=== PATIENT | female | born 1950 | race Caucasian/White ===

== ENCOUNTER → 2021-03-06 13:12 | Outpatient (CLI) | payer MEDICARE, SELFPAY ==
[2021-03-06 13:56] LABS: Basophils # 0.1 K/mm3 (0-0.2); Eosinophils # 0.2 K/mm3 (0.0-0.4); Eosinophils % 3.1 % (0.1-12.0); Hematocrit 45.8 % (37.0-47.0); Hemoglobin 15.1 g/dL (12.2-16.2); Lymphocytes # 2.9 K/mm3 (0.7-4.5); Lymphocytes % 41.3 % (10-50); Mean Corpuscular Hemoglobin 32.4 pg (27.0-31.2); Mean Corpuscular Volume 98.2 fl (81-99); Mean Platelet Volume 7.4 fl (7.4-10.4); Monocytes # 0.5 K/mm3 (0.1-1.0); Monocytes % 6.6 % (1.7-9.3); Neutrophils # 3.4 K/mm3 (1.8-7.8); Neutrophils % 47.9 % (37.0-80.0); Platelet Count 313 K/mm3 (142-424); Red Blood Count 4.67 M/mm3 (4.20-5.40); Red Cell Distribution Width 12.5 % (11.5-17.5)
[2021-03-06 14:50] LABS: Alanine Aminotransferase 24 U/L (12-78); Albumin Level 4.7 g/dl (3.5-5.0); Albumin/Globulin Ratio 1.7 (1.1-1.8); Alkaline Phosphatase 84 U/L (38-126); Anion Gap 13.4 mEq/L (5-15); Aspartate Amino Transferase 29 U/L (14-36); Bilirubin,Total 0.7 mg/dl (0.2-1.3); Blood Urea Nitrogen 10 mg/dl (7-17); Calcium 9.9 mg/dl (8.4-10.2); Carbon Dioxide 24 mmol/L (22.0-30.0); Chloride 107 mmol/L (98-107); Chol/HDL Ratio 3.6 (1-3.5); Cholesterol 257 mg/dl (140-200); Estimated Glomerular Filt Rate 99 ml/min (>60); GFR (African American) 120 ML/MIN (>60); Globulin 2.8 g/dL (1.3-3.2); Glucose 97 mg/dl (74-100); HDL Cholesterol 72 mg/dl (40-60); Magnesium 2.1 mg/dl (1.6-2.3); Potassium 4.4 mmoL/L (3.5-5.1); Sodium 140 mmol/L (136-145); Total Protein,Serum 7.5 g/dl (6.3-8.2); Triglycerides 172 mg/dl (30-150); VLDL Cholesterol 34 mg/dL (0-40)
[2021-03-06 15:06] LABS: 25-OH Vitamin D, Total 83.6 ng/mL (30-100)
[2021-03-06 15:08] LABS: Triiodothryronine (T3) Uptake 31 % (23.5-40.5)
[2021-03-06 15:09] LABS: Free Thyroxine Index 2.4 ug/dL (5.93-13.13); T4 (Thyroxine) 7.9 ug/dl (5.53-11.0)
[2021-03-06 15:22] LABS: Thyroid Stimulating Hormone 2.47 uIU/mL (0.465-4.68)
[2021-03-06 15:42] LABS: Vitamin B12 922 pg/mL (239-931)
[2021-03-08 22:24] LABS: Thyroid Peroxidase Antibodies <9 IU/mL (0-34); Treponema pallidum Ab (FTA-ABS Non Reactive (Non Reactive)
== END ==
PROVIDERS: PCP Internal Medicine Adolescent Medicine; Visit Provider Internal Medicine Adolescent Medicine
DX: R53.83 Other fatigue (principal); R27.0 Ataxia, unspecified; R25.1 Tremor, unspecified; E78.00 Pure hypercholesterolemia, unspecified
CPT/HCPCS: 36415; 80053; 80061; 82306; 82607; 83735; 84436; 84443; 84479; 85025; 86376; 86780

== ENCOUNTER → 2021-03-21 13:21 | Outpatient (CLI) | payer MEDICARE, SELFPAY ==
--- NOTE | 2021-03-21 13:25 | MR_ITS ---
PROCEDURE: MR HEAD/BRAIN WO CON CLINICAL INDICATION: TREMOR COMPARISON: No exams were available for comparison TECHNIQUE: Routine multiplanar multi echo sequences are performed without gadolinium enhancement. FINDINGS: No midline shift, mass effect, intracranial hemorrhage, hydrocephalus, or acute infarction. No restricted diffusion. The cerebellopontine angles, cerebellum, and brainstem and mid brain have an unremarkable appearance. There is mild generalized atrophy along with more prominent bifrontal atrophy. There is prominence of the subdural space in the frontal region on both sides. Small T2 white matter hyperintensity is present in the left body of the caudate nucleus. Partial empty sella is present as a normal variant. The optic chiasm, corpus callosum, and craniocervical junction has an unremarkable appearance. There is fluid-filled left mastoid sinus. No paranasal sinus air-fluid levels evident. IMPRESSION: 1. No acute intracranial findings. 2. Mild diffuse cerebral atrophy greater in the frontal regions 3. Left mastoid sinus disease Dictated by: Pete Hutchinson MD 03/22/2021 15:59 Pete Hutchinson MD in [place] 03/22/2021 15:59
== END ==
PROVIDERS: PCP Internal Medicine Adolescent Medicine; Visit Provider Internal Medicine Adolescent Medicine
DX: R27.0 Ataxia, unspecified (principal); R25.1 Tremor, unspecified
CPT/HCPCS: 70551

== ENCOUNTER → 2021-06-07 09:18 | Outpatient (CLI) | payer MEDICARE, SELFPAY ==
[2021-06-07 10:28] LABS: Blood Urea Nitrogen 11 mg/dl (7-17); Estimated Glomerular Filt Rate 99 ml/min (>60); GFR (African American) 120 ML/MIN (>60)
[2021-06-07 10:33] LABS: C-Reactive Protein 2.4 mg/L (0-4)
[2021-06-07 10:41] LABS: Erythrocyte Sedimentation Rate 3 mm/hr (0-30)
[2021-06-08 12:40] LABS: Antistreptolysin O Ab 127.9 IU/mL (0.0-200.0)
== END ==
PROVIDERS: Visit Provider Psychiatry & Neurology Neurology
DX: Z01.812 Encounter for preprocedural laboratory examination (principal); G96.9 Disorder of central nervous system, unspecified
CPT/HCPCS: 36415; 82565; 84520; 85651; 86060; 86140

== ENCOUNTER → 2021-06-08 10:39 | Outpatient (CLI) | payer MEDICARE, SELFPAY ==
--- NOTE | 2021-06-08 10:45 | MR_ITS ---
PROCEDURE: MR CERVICAL SPINE WO/W CON CLINICAL INDICATION: CERVICAL RADICULOPATHY Fatigue and upper body weakness. Pain in lt shoulder. COMPARISON: MR MR HEAD/BRAIN WO CON from 03/21/2021 TECHNIQUE: Standard multiplanar multiecho sequences are performed without contrast. 3-D MIP and myelographic images are also rendered and reviewed FINDINGS: There is slight reversal of the cervical lordosis which could be due to patient positioning or muscle spasm. Partial empty sella noted.. C2-C3: Unremarkable. C3-C4: Unremarkable. C4-C5: Degenerative disc disease with minimal bulging disc. Mild bilateral foraminal narrowing. There is canal stenosis at this level measuring 10 mm. There is minimal contour deformity of the cord anteriorly. C5-C6: Degenerative disc disease with minimal bulging disc and endplate hypertrophic change. 2-3 mm retrolisthesis of C5. Canal stenosis at 9 mm with minimal contour deformity of the cord anteriorly. Moderate left-sided foraminal narrowing and mild right-sided foraminal narrowing. C6-C7: Left-sided foraminal narrowing from facet and uncovertebral hypertrophy. There is a small area of abnormal signal intensity involving the superior endplate of C6 anteriorly measuring 7 mm hypointense on T1 and hyperintense on the T2 weighted images showing some mild homogeneous contrast enhancement. This may represent a hemangioma. Other lesions not excluded and follow-up is suggested. C7-T1: The disc space is unremarkable. In the right foramen at C7-T1 there is a cystic appearing area measuring 9 mm transverse and 8 mm AP. This is hypointense on T1 and hyperintense on T2 and does not demonstrate contrast enhancement and may only be related to dural ectasia. The follow-up suggested to confirm stability. No extruded herniated disc is evident. The spinal cord has an unremarkable appearance. IMPRESSION: 1. There is multilevel cervical spondylosis with degenerative disc disease, bulging disc, facet and uncovertebral hypertrophy resulting in foraminal narrowing and canal stenosis with minimal impingement upon the cord at C5-C6 and C6-C7. Please see above for detailed description at each level. 2. 7 mm lesion of the C6 vertebral body showing some contrast enhancement. This is indeterminate. This could be related to a hemangioma or neoplastic process such is a metastatic lesion. Follow-up is suggested to confirm stability. 3. Cystic lesion in the right C7-T1 neural foramen and may only be due to dural ectasia. This does not demonstrate enhancement. 4. Suggest 3 month follow-up to confirm stability. Dictated by: Pete Hutchinson MD 06/09/2021 08:55 Pete Hutchinson MD in [place] 06/09/2021 08:55
== END ==
PROVIDERS: PCP Internal Medicine Adolescent Medicine; Visit Provider Psychiatry & Neurology Neurology
DX: M54.12 Radiculopathy, cervical region (principal)
CPT/HCPCS: 72156; 76376; A9576

== ENCOUNTER → 2021-10-13 07:29 | Outpatient (CLI) | payer MEDICARE, SELFPAY ==
--- NOTE | 2021-10-13 07:31 | NM_ITS ---
APPROVED REPORT Exam: Nuclear Stress Test Indication: SOB, Fatigue, Tobacco use, Family history Patient Location: Outpatient Stress Tech: Sissy Gambino [place] Tech:Ana Paula Rothman, ARRT, RT (R)(N) Ht: 5 ft 1 in Wt: 126 lbs Bra Size: B HR: 96 bpm BP: 136/84 mmHg BSA: 1.55 m2 BMI: 23.8 History: SOB, Fatigue, Tobacco use, Family history Procedure: Patient received a 0.4 mg of intravenous Lexiscan, resting heart rate 96 bpm, resting blood pressure 136/84 mmHg, with Lexiscan maximum heart rate achived was 122 bpm which is Less than 85 % of the maximum predicted heart rate and blood pressure was 139/70 mmHg. With Lexiscan, patient denied any complaint of chest pain. Electrocardiogram Resting electrocardiogram shows sinus rhythm, with Lexiscan there is less than 1.[address] segment depression noted from the baseline EKG. The EKG portion of the Lexiscan is nondiagnostic. Cardiac Stress and Resting SPECT Images: Cardiac Stress and Resting SPECT images were obtained using technetium 99m Myoview 30.8 mCi stress and 10.77 mCi at rest. Patient unable to lay on stomach for prone images. Gated SPECT for analysis of segmental wall motion and calculation of the ejection fraction also done. Cardiac stress and resting SPECT images show uniform myocardial activity without segmental perfusion abnormality, computer derived ejection fraction 64% with no regional wall motion abnormality, right ventricle is normal size and contractility. Conclusion: 1. The EKG portion of the Lexiscan Myoview is nondiagnostic. 2. No scintigraphic evidence of reversible ischemia seen, computer derived ejection fraction is 64% with no regional wall motion abnormality, right ventricle is normal size and contractility. 3. Normal Lexiscan Myoview study. Electronically signed by : Nam Mccoy MD 10/16/2021 21:21:44
--- NOTE | 2021-10-13 07:31 | CA_ITS ---
APPROVED REPORT Exam: Pharmacologic Technologist: Sissy Gambino, Ht: 5 ft 1 in Wt: 128 lbs BSA: 1.56 m2 HR: 97 bpm BP: 136/84 mmHg Medical History Medications: Vitamin D3,,,,, Co Q10,,,,, Stress Test Details Test: LEXISCAN HR Resting HR: 96 bpm Max Heart Rate (APMHR): 151.882327 bpm Max HR Achieved: 122 bpm Target HR (85% APMHR): 128.666793 bpm % of APMHR: 80.79 Recovery HR: 116 bpm BP Resting BP: 136/84 mmHg Max BP: 139/70 mmHg Recovery BP: 122.0/76.0 mmHg ECG Resting ECG: NSR, NSSTTW Abnormalities Clinical Reason for Termination: Completed Protocol Exercise duration: 04:05 min Highest Stage Achieved: Stress ECG Conclusion Symptoms: None Arrhythmias/Ectopy: None ST-T Changes: <1.5mm ST Segment changes. Conclusion: Non-Diagnostic Test Summary RECOVERY 02:29 . . 115 . 122/ 76 . . REST 04:52 . . 96 . 136/ 84 . . Stage 1 01:00 . . 120 . . . . Stage 2 01:00 . . 119 . . . . Stage 3 01:00 . . 116 . 139/ 70 . . Stage 4 01:00 . . 115 . 114/ 73 . . Stage 4 01:05 . . 114 . 114/ 73 . Stop exercise at 04:05 RECOVERY 01:00 . . 112 . . . . RECOVERY 02:00 . . 116 . . . . RECOVERY 02:29 . . 115 . 122/ 76 . . Electronically signed by : Nam Mccoy MD 10/16/2021 19:58:40
--- NOTE | 2021-10-13 09:23 | HMH.ITSHM ---
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 []COQ10 VITAMIN D3
== END ==
PROVIDERS: Visit Provider Nurse Practitioner Family
DX: R00.0 Tachycardia, unspecified (principal); R06.00 Dyspnea, unspecified; Z72.0 Tobacco use; Z82.49 Family history of ischemic heart disease and other diseases of the circulatory system
CPT/HCPCS: 78452; 93017; 93306; A9502; J2785

== ENCOUNTER → 2021-10-24 08:07 | Outpatient (CLI) | payer MEDICARE, SELFPAY ==
--- NOTE | 2021-10-24 08:14 | MR_ITS ---
PROCEDURE: MR CERVICAL SPINE WO/W CON CLINICAL INDICATION: RADICULOPATHY, CERVICAL REGION COMPARISON: MR MR CERVICAL SPINE WO/W CON from 06/08/2021 TECHNIQUE: Standard multiplanar multiecho sequences are performed without and with contrast. 3-D MIP and myelographic images are also rendered and reviewed FINDINGS: Small T2 hyperintensity noted in the central aspect of the derrick and may be related to an area of ski angela gliotic change. There is slight reversal of the cervical lordosis which could be due to patient positioning or muscle spasm. Partial empty sella noted.. C2-C3: Unremarkable. C3-C4: Unremarkable. C4-C5: Degenerative disc disease with minimal bulging disc. Mild bilateral foraminal narrowing. There is canal stenosis at this level measuring 10 mm. There is minimal contour deformity of the cord anteriorly. Not significantly changed. C5-C6: Degenerative disc disease with minimal bulging disc slightly eccentric to the left with severe left-sided foraminal narrowing and mild right-sided foraminal narrowing not significantly changed. C6-C7: Left-sided foraminal narrowing from facet and uncovertebral hypertrophy. Mild degenerative disc disease with minimal bulging discs. No abnormal enhancement apparent. There is a small persistent area of increased T2 signal involving the superior endplate of C6 anteriorly with no significant enhancement. C7-T1: The disc space is unremarkable. No change dural ectasia on the right at C7-T1. No extruded herniated disc is evident. The spinal cord has an unremarkable appearance. IMPRESSION: Multilevel cervical spondylosis as described above. Overall no significant change. No change in the T2 hyperintensity of the C6 vertebral body without significant enhancement. Dictated by: Pete Hutchinson MD 10/25/2021 16:26 Pete Hutchinson MD in [place] 10/25/2021 16:26
[2021-10-24 08:57] LABS: Blood Urea Nitrogen 11 mg/dl (7-17); Estimated Glomerular Filt Rate 99 ml/min (>60); GFR (African American) 120 ML/MIN (>60)
== END ==
PROVIDERS: PCP Internal Medicine Cardiovascular Disease; Visit Provider Psychiatry & Neurology Neurology
DX: M54.12 Radiculopathy, cervical region (principal)
CPT/HCPCS: 36415; 72156; 76376; 82565; 84520; A9576

== ENCOUNTER 2021-12-17 15:38 | Emergency (ER) | payer MEDICARE, SELFPAY ==
[2021-12-17] VITALS (7 sets, daily range): BP systolic 111–139; BP diastolic 76–114; PULSE 100–110; RESP 18–20; TEMP 37.3; O2SAT 92–98; BMI 21.5
--- NOTE | 2021-12-17 16:15 | HMH.EDGENADL ---
ED Disposition Clinical Impression: Acute bronchitis Qualifiers: Bronchitis organism: unspecified organism Qualified Code(s): J20.9 - Acute bronchitis, unspecified Disposition: Home, Self-Care Condition on Discharge: Good Instructions: DI for Acute Bronchitis, Albuterol Oral Inhalation, How to Use a Metered-Dose Inhaler Additional Instructions: Doxycycline as prescribed. Albuterol inhaler 2 puffs every 6 hours as needed for shortness of breath. Follow-up with primary care provider if not improved in 4 to 5 days. Prescriptions: Doxycycline Monohydrate [Monodox] 100 mg PO BID #20 cap Transmission Status: Pending to [id number] Referrals: Provider,Referral, [Primary Care Provider] - - Critical Care Critical Care Time: No Attestation: On 12/17/21, the high probability of a clinically significant, sudden or life threatening deterioration of the following system(s) required my full and direct attention, intervention and personal management. The time I documented below is in addition to time spent performing reported procedures but includes the following listed in this critical care notation. Medical Decision Making - Osiel Inquiry Pt receiving controlled substance: No Vital Signs: 12/17/21 15:40 12/17/21 16:15 12/17/21 16:45 Temperature 99.1 F Temperature Source Oral Pulse Rate 104 H 104 H Pulse Rate [Left Radial] 110 H Respiratory Rate 20 Blood Pressure 118/76 111/81 Blood Pressure [Right Arm] 130/89 Blood Pressure Mean Blood Pressure Mean [Right Arm] 102 Blood Pressure Source [Right Arm] Automatic Cuff Blood Pressure Position [Right Arm] Sitting 02 Sat by Pulse Oximetry 95 92 L 96 Oxygen Delivery Method Room Air 12/17/21 17:00 12/17/21 17:30 12/17/21 17:31 Temperature Temperature Source Pulse Rate 100 H 101 H Pulse Rate [Left Radial] Respiratory Rate Blood Pressure 117/80 138/114 H 139/88 Blood Pressure [Right Arm] Blood Pressure Mean 105 Blood Pressure Mean [Right Arm] Blood Pressure Source [Right Arm] Blood Pressure Position [Right Arm] 02 Sat by Pulse Oximetry 93 L 98 Oxygen Delivery Method - Lab Data Lab Results 12/17/21 16:05: WBC 12.6 H, RBC 4.70, Hgb 15.1, Hct 46.4, MCV 98.5, MCH 32.1 H, MCHC 32.6, RDW 12.5, Plt Count 384, MPV 7.8, Neut % (Auto) 58.6, Lymph % (Auto) 24.2, [place] % (Auto) 5.8, Eos % (Auto) 9.7, Baso % (Auto) 1.6, Neut # (Auto) 7.4, Lymph # (Auto) 3.0, [place] # (Auto) 0.7, Eos # (Auto) 1.2 H, Baso # (Auto) 0.2 12/17/21 16:05: Sodium 136, Potassium 3.9, Chloride 99, Carbon Dioxide 27, Anion Gap 13.9, BUN 22 H, Creatinine 0.50 L, Estimated Creat Clear 43, Estimated GFR 122, Est GFR ( Amer) 148, Glucose 116 H, Calcium 9.8, Total Bilirubin 0.6, AST 44 H, ALT 36, Alkaline Phosphatase 75, Troponin I < 0.01, Total Protein 7.2, Albumin 4.5, Globulin 2.7, Albumin/Globulin Ratio 1.7 12/17/21 16:05: D-Dimer 0.65 H 12/17/21 16:05: NT-Pro-B Natriuret Pep 39.6 Result diagrams: 12/17/21 16:05 12/17/21 16:05 Orders (Tests/Meds): ED MEDICATIONS Generic Name Dose Route Start Last Admin Trade Name Freq PRN Reason Stop Dose Admin Albuterol Sulfate 2 puffs 12/17/21 17:58 Albuterol-Hfa 90mcg/Puff Inhaler 8gm IH 01/16/22 17:57 Q6HP PRN Shortness Of Breath Doxycycline Hyclate 100 mg 12/17/21 17:59 Doxycycline Hycl 100 Mg Tablet PO 12/17/21 18:00 ONCE ONE Miscellaneous 1 unit 12/17/21 17:58 Aerochamber/Optihaler MC 12/17/21 17:59 ONCE ONE Discontinued Medications Generic Name Dose Route Start Last Admin Trade Name Freq PRN Reason Stop Dose Admin Iopamidol 70 ml 12/17/21 17:32 12/17/21 17:34 Iopamidol-370 (76%);100ml Bottle IV 12/17/21 17:33 70 ml ONCE ONE Administration Sodium Chloride 50 ml 12/17/21 17:32 12/17/21 17:33 0.9 % Sodium Chloride 50 Ml Vial IV 12/17/21 17:33 50 ml ONCE ONE Administration Sodium Chloride 10 ml 12/17/21 17:32
--- NOTE | 2021-12-17 16:26 | ECG_ITS ---
APPROVED REPORT Exam: Resting ECG HR:104 bpm ECG Measurements Heart Rate 104 AXES RI 136 P 51 QRSd 84 QRS 9 QT 322 T 69 QTc 382 Conclusion SINUS TACHYCARDIA NONSPECIFIC T-WAVE ABNORMALITY ABNORMAL RHYTHM ECG UNCONFIRMED REPORT Electronically signed by : Devon Villegas MD 12/18/2021 18:35:34
--- NOTE | 2021-12-17 16:26 | XR_ITS ---
PROCEDURE INFORMATION: Exam: XR Chest Exam date and time: 12/17/2021 4:26 PM Age: 71 years old Clinical indication: Shortness of breath; Patient HX: SOA, smoker. TECHNIQUE: Imaging protocol: XR of the chest. Views: 2 views. COMPARISON: MR CERVICAL SPINE WO/W CON 10/24/2021 8:53 AM FINDINGS: Lungs: Central opacities with peribronchial cuffing, seen to advantage on the lateral chest radiograph suggest viral process versus reactive airways without convincing consolidation. Pleural spaces: Inter fissural effusion seen on the lateral radiograph. No pneumothorax. Heart/Mediastinum: Unremarkable. No cardiomegaly. Bones/joints: Unremarkable. IMPRESSION: Central opacities with peribronchial cuffing, seen to advantage on the lateral chest radiograph suggest viral process versus reactive airways without convincing consolidation.
--- NOTE | 2021-12-17 16:37 | PC.NURSE ---
radiology here for xray
[2021-12-17 16:38] LABS: Basophils # 0.2 K/mm3 (0-0.2); Basophils % 1.6 % (0.1-2.0); Eosinophils # 1.2 K/mm3 (0.0-0.4); Eosinophils % 9.7 % (0.1-12.0); Hematocrit 46.4 % (37.0-47.0); Hemoglobin 15.1 g/dL (12.2-16.2); Lymphocytes % 24.2 % (10-50); Mean Corpuscular HGB Conc 32.6 g/dL (31.8-35.4); Mean Corpuscular Hemoglobin 32.1 pg (27.0-31.2); Mean Corpuscular Volume 98.5 fl (81-99); Mean Platelet Volume 7.8 fl (7.4-10.4); Monocytes # 0.7 K/mm3 (0.1-1.0); Monocytes % 5.8 % (1.7-9.3); Neutrophils # 7.4 K/mm3 (1.8-7.8); Neutrophils % 58.6 % (37.0-80.0); Platelet Count 384 K/mm3 (142-424); Red Cell Distribution Width 12.5 % (11.5-17.5); White Blood Count 12.6 K/mm3 (4.8-10.8)
[2021-12-17 16:44] LABS: Alanine Aminotransferase 36 U/L (12-78); Albumin Level 4.5 g/dl (3.5-5.0); Albumin/Globulin Ratio 1.7 (1.1-1.8); Alkaline Phosphatase 75 U/L (38-126); Anion Gap 13.9 mEq/L (5-15); Aspartate Amino Transferase 44 U/L (14-36); Bilirubin,Total 0.6 mg/dl (0.2-1.3); Blood Urea Nitrogen 22 mg/dl (7-17); Calcium 9.8 mg/dl (8.4-10.2); Carbon Dioxide 27 mmol/L (22.0-30.0); Chloride 99 mmol/L (98-107); Creatinine Clearance Estimated 43 mL/min (50-200); Estimated Glomerular Filt Rate 122 ml/min (>60); GFR (African American) 148 ML/MIN (>60); Globulin 2.7 g/dL (1.3-3.2); Glucose 116 mg/dl (74-100); Potassium 3.9 mmoL/L (3.5-5.1); Sodium 136 mmol/L (136-145); Total Protein,Serum 7.2 g/dl (6.3-8.2)
[2021-12-17 16:50] LABS: D-Dimer 0.65 ug/mL (0.0-0.5)
[2021-12-17 16:59] LABS: Troponin I < 0.01 ng/ml (0.00-0.034)
--- NOTE | 2021-12-17 17:04 | CT_ITS ---
PROCEDURE INFORMATION: Exam: CTA Chest With Contrast Exam date and time: 12/17/2021 5:04 PM Age: 71 years old Clinical indication: Shortness of breath; Additional info: SOA, elev d-dimer TECHNIQUE: Imaging protocol: Computed tomographic angiography of the chest with contrast. 3D rendering (Not supervised by radiologist): MIP and/or 3D reconstructed images were created by the technologist. Radiation optimization: All CT scans at this facility use at least one of these dose optimization techniques: automated exposure control; mA and/or kV adjustment per patient size (includes targeted exams where dose is matched to clinical indication); or iterative reconstruction. Contrast material: ISOVUE; Contrast volume: 70 ml; Contrast route: INTRAVENOUS (IV); COMPARISON: CR XR CHEST 2V 12/17/2021 4:24 PM FINDINGS: Pulmonary arteries: Normal. No pulmonary emboli. Aorta: Unremarkable. No aortic aneurysm. No aortic dissection. Lungs: Dependent bilateral lung base opacities favor atelectasis. Subsegmental atelectasis with air bronchograms of the right middle lobe and lingula. Pleural spaces: Unremarkable. No pneumothorax. No pleural effusion. Heart: Unremarkable. No cardiomegaly. No pericardial effusion. Lymph nodes: Unremarkable. No enlarged lymph nodes. Bones/joints: Unremarkable. No acute fracture. Soft tissues: Unremarkable. IMPRESSION: No CT angiography evidence of pulmonary embolism.
[2021-12-17 17:27] LABS: NT Pro Brain Natriuretic Pep. 39.6 pg/mL (0-125)
--- NOTE | 2021-12-17 17:28 | PC.NURSE ---
pt just got back from radiology.
--- NOTE | 2021-12-17 17:30 | PC.NURSE ---
pt resting in bed, call light within reach. error: burner technician not in room with this patient. Different patient. V/S 1730 BP: 139/88
== END 2021-12-17 18:11 | disposition home or self-care (01) ==
PROVIDERS: Emergency Provider Emergency Medicine
DX: J20.9 Acute bronchitis, unspecified (principal); F41.9 Anxiety disorder, unspecified; F17.210 Nicotine dependence, cigarettes, uncomplicated
CPT/HCPCS: 71046; 71275; 80053; 83880; 84484; 85025; 85378; 93005; 99283; Q9967

== ENCOUNTER 2022-01-11 11:35 | Emergency (ER) | payer MEDICARE, SELFPAY ==
[2022-01-11 11:36] VITALS: BP 125/87; PULSE 112; RESP 24; TEMP 36.8; O2SAT 95; BMI 20.4
--- NOTE | 2022-01-11 12:10 | HMH.EDGENADL ---
ED Disposition Clinical Impression: History of progressive weakness, Anorexia Cholelithiasis Qualifiers: Cholelithiasis location: gallbladder Cholecystitis presence: without cholecystitis Biliary obstruction: without biliary obstruction Qualified Code(s): K80.20 - Calculus of gallbladder without cholecystitis without obstruction Disposition: Home, Self-Care Condition on Discharge: Fair Additional Instructions: See Dr. Patton in the office on Saturday as scheduled. Referrals: Sydney Patton MD [Primary Care Provider] - - Critical Care Critical Care Time: No Attestation: On 01/11/22, the high probability of a clinically significant, sudden or life threatening deterioration of the following system(s) required my full and direct attention, intervention and personal management. The time I documented below is in addition to time spent performing reported procedures but includes the following listed in this critical care notation. Medical Decision Making - Medical Records Medical records reviewed: Yes: I reviewed the patient's medical records. MR Comment: Reviewed records from previous emergency department visit. Reviewed note from prior cardiology visit. Reviewed results of echocardiogram, stress test with Myoview, MRI brain, 2 MRIs of C-spine, CTA of chest. Reviewed prior lab results. - Osiel Inquiry Pt receiving controlled substance: No Vital Signs: 01/11/22 11:36 Temperature 98.3 F Temperature Source Oral Pulse Rate [Right Radial] 112 H Respiratory Rate 24 Blood Pressure [Left Arm] 125/87 Blood Pressure Mean [Left Arm] 99 Blood Pressure Source [Left Arm] Automatic Cuff Blood Pressure Position [Left Arm] Sitting 02 Sat by Pulse Oximetry 95 Oxygen Delivery Method Room Air - Lab Data Lab Results 01/11/22 12:48: Sodium 141, Potassium 4.2, Chloride 100, Carbon Dioxide 33 H, Anion Gap 12.2, BUN 9, Creatinine 0.40 L, Estimated Creat Clear 41, Estimated GFR 158, Est GFR ( Amer) 191, Glucose 113 H, Calcium 9.5, Total Bilirubin 0.6, AST 28, ALT 21, Alkaline Phosphatase 79, Troponin I < 0.01, C-Reactive Protein 2.7, NT-Pro-B Natriuret Pep 58.5, Total Protein 7.5, Albumin 4.6, Globulin 2.9, Albumin/Globulin Ratio 1.6 01/11/22 12:48: ESR 3 01/11/22 : WBC 7.2, RBC 4.96, Hgb 16.0, Hct 48.7 H, MCV 98.1, MCH 32.2 H, MCHC 32.9, RDW 12.5, Plt Count 373, MPV 7.1 L, Neut % (Auto) 60.2, Lymph % (Auto) 30.6, [place] % (Auto) 5.4, Eos % (Auto) 3.1, Baso % (Auto) 0.7, Neut # (Auto) 4.3, Lymph # (Auto) 2.2, [place] # (Auto) 0.4, Eos # (Auto) 0.2, Baso # (Auto) 0.1 Result diagrams: 01/11/22 Unknown 01/11/22 12:48 Orders (Tests/Meds): ED MEDICATIONS Generic Name Dose Route Start Last Admin Trade Name Freq PRN Reason Stop Dose Admin Sodium Chloride 10 ml 01/11/22 12:10 Sodium Chloride 0.9% 10ml Flush Syringe IV 02/10/22 12:09 NEEDED PRN Maintain IV Site Discontinued Medications Generic Name Dose Route Start Last Admin Trade Name Freq PRN Reason Stop Dose Admin Iopamidol 75 ml 01/11/22 13:46 01/11/22 13:47 Iopamidol-370 (76%);100ml Bottle IV 01/11/22 13:47 75 ml ONCE ONE Administration Sodium Chloride 10 ml 01/11/22 13:46 01/11/22 13:47 Sodium Chloride 0.9% 10ml Syr (Rad Only) IV 01/11/22 13:47 10 ml ONCE ONE Administration ORDERS Category Date Time Status Troponin I Q3H Lab 01/11/22 15:15 Ordered Troponin I Q3H Lab 01/11/22 18:15 Ordered - CT Data CT Scan: Abdomen, Pelvis Time Received: 14:[address] Reviewed: Yes: I have viewed the radiologist's interpretation Findings Narrative: Procedure(s): CT abdomen pelvis w con Accession Number(s): [id number] cc: Nabeel Foss MD; Chepe Kowalski MD; Sydney Patton MD~ FINAL REPORT CLINICAL HISTORY: weakness, fatigue FINDINGS: CT OF THE ABDOMEN AND PELVIS WITH CONTRAST Axial CT images of the abdomen and pelvis were obtained after the administration of intravenous contrast. Coronal reformatted images wer
--- NOTE | 2022-01-11 12:39 | PC.NURSE ---
Calling Dr Hensley at this time.
--- NOTE | 2022-01-11 12:41 | ECG_ITS ---
APPROVED REPORT Exam: Resting ECG HR:105 bpm ECG Measurements Heart Rate 105 AXES ID 125 P 57 QRSd 103 QRS 10 QT 320 T 69 QTc 381 Conclusion SINUS TACHYCARDIA WITH OCCASIONAL SUPRAVENTRICULAR PREMATURE COMPLEXES NONSPECIFIC T-WAVE ABNORMALITY ABNORMAL RHYTHM ECG UNCONFIRMED REPORT Electronically signed by : Devon Villegas MD 01/11/2022 20:18:59
--- NOTE | 2022-01-11 12:42 | PC.NURSE ---
speaking with Dr Hensley at this time.
--- NOTE | 2022-01-11 12:42 | PC.NURSE ---
Dr Kowalski talking to Dr Hensley about patient.
[2022-01-11 13:06] LABS: Basophils # 0.1 K/mm3 (0-0.2); Basophils % 0.7 % (0.1-2.0); Eosinophils # 0.2 K/mm3 (0.0-0.4); Eosinophils % 3.1 % (0.1-12.0); Hematocrit 48.7 % (37.0-47.0); Lymphocytes # 2.2 K/mm3 (0.7-4.5); Lymphocytes % 30.6 % (10-50); Mean Corpuscular HGB Conc 32.9 g/dL (31.8-35.4); Mean Corpuscular Hemoglobin 32.2 pg (27.0-31.2); Mean Corpuscular Volume 98.1 fl (81-99); Mean Platelet Volume 7.1 fl (7.4-10.4); Monocytes # 0.4 K/mm3 (0.1-1.0); Monocytes % 5.4 % (1.7-9.3); Neutrophils # 4.3 K/mm3 (1.8-7.8); Neutrophils % 60.2 % (37.0-80.0); Platelet Count 373 K/mm3 (142-424); Red Blood Count 4.96 M/mm3 (4.20-5.40); Red Cell Distribution Width 12.5 % (11.5-17.5); White Blood Count 7.2 K/mm3 (4.8-10.8)
[2022-01-11 13:11] LABS: Alanine Aminotransferase 21 U/L (12-78); Albumin Level 4.6 g/dl (3.5-5.0); Albumin/Globulin Ratio 1.6 (1.1-1.8); Alkaline Phosphatase 79 U/L (38-126); Anion Gap 12.2 mEq/L (5-15); Aspartate Amino Transferase 28 U/L (14-36); Bilirubin,Total 0.6 mg/dl (0.2-1.3); Blood Urea Nitrogen 9 mg/dl (7-17); Calcium 9.5 mg/dl (8.4-10.2); Carbon Dioxide 33 mmol/L (22.0-30.0); Chloride 100 mmol/L (98-107); Creatinine Clearance Estimated 41 mL/min (50-200); Estimated Glomerular Filt Rate 158 ml/min (>60); GFR (African American) 191 ML/MIN (>60); Globulin 2.9 g/dL (1.3-3.2); Glucose 113 mg/dl (74-100); Potassium 4.2 mmoL/L (3.5-5.1); Sodium 141 mmol/L (136-145); Total Protein,Serum 7.5 g/dl (6.3-8.2)
[2022-01-11 13:16] LABS: C-Reactive Protein 2.7 mg/L (0-4)
--- NOTE | 2022-01-11 13:17 | CT_ITS ---
FINAL REPORT CLINICAL HISTORY: weakness, fatigue FINDINGS: CT OF THE ABDOMEN AND PELVIS WITH CONTRAST Axial CT images of the abdomen and pelvis were obtained after the administration of intravenous contrast. Coronal reformatted images were also obtained and reviewed.This study was performed with techniques to keep radiation doses as low as reasonably achievable (ALARA). Individualized dose reduction techniques using automated exposure control or adjustment of mA and/or kV according to the patient's size were employed. Abdomen: There is mild bibasilar atelectasis or scarring. The heart is normal in size. The liver has an unremarkable appearance, without evidence of mass or biliary ductal dilatation. There are gallstones in the gallbladder with mild gallbladder wall thickening. Cholecystitis cannot be excluded. The spleen is unremarkable. No adrenal mass is present. The pancreas has an unremarkable appearance. The kidneys are normal, without evidence of mass or hydronephrosis. The aorta is normal in caliber. There is no free fluid or adenopathy. No mass or abnormal fluid collection is seen. There is a large amount of retained stool. Pelvis: The appendix is normal. The urinary bladder is unremarkable. No inflammatory process is seen. There is no evidence of mass or adenopathy. There is thickening of the wall of the sigmoid colon that may represent muscular hypertrophy or mild colitis. There is no evidence of bowel obstruction. IMPRESSION: Gallstones with mild gallbladder wall thickening. Cholecystitis cannot be excluded. Consider nuclear medicine hepatobiliary scan. Thickening of the sigmoid colon wall may represent muscular hypertrophy or mild colitis. Large amount of retained stool. Normal appendix. Reviewed, Interpreted and Dictated by Nabeel Foss III, MD Transcribed by Fabian Jimenes Authenticated by Nabeel Foss III, MD on 01/11/2022 02:12:09 PM [facility]
[2022-01-11 13:26] LABS: NT Pro Brain Natriuretic Pep. 58.5 pg/mL (0-125)
[2022-01-11 13:28] LABS: Erythrocyte Sedimentation Rate 3 mm/hr (0-30)
[2022-01-11 13:37] LABS: Troponin I < 0.01 ng/ml (0.00-0.034)
[2022-01-11 14:54] VITALS: BP 121/70; PULSE 102; RESP 18; TEMP 36.8; O2SAT 98
== END 2022-01-11 15:20 | disposition home or self-care (01) ==
PROVIDERS: Emergency Provider Emergency Medicine; PCP Family Medicine
DX: K80.20 Calculus of gallbladder without cholecystitis without obstruction (principal); R63.0 Anorexia; Z68.20 Body mass index [BMI] 20.0-20.9, adult; F41.9 Anxiety disorder, unspecified; F17.210 Nicotine dependence, cigarettes, uncomplicated; Z88.0 Allergy status to penicillin; Z88.2 Allergy status to sulfonamides
CPT/HCPCS: 74177; 80053; 83880; 84484; 85025; 85651; 86140; 93005; 99283; 99284; Q9967

== ENCOUNTER 2022-01-18 12:00 | Emergency (ER) | payer MEDICARE, SELFPAY ==
--- NOTE | 2022-01-18 11:56 | ECG_ITS ---
APPROVED REPORT Exam: Resting ECG HR:101 bpm ECG Measurements Heart Rate 101 AXES IN 125 P 52 QRSd 89 QRS 10 QT 346 T 56 QTc 404 Conclusion SINUS TACHYCARDIA WITH OCCASIONAL SUPRAVENTRICULAR PREMATURE COMPLEXES POSSIBLE RIGHT ATRIAL ENLARGEMENT [0.25mV P-WAVE] MINIMAL VOLTAGE CRITERIA FOR LVH, CONSIDER NORMAL VARIANT [MEETS CRITERIA IN ONE OF: R(aVL), S(V1), R(V5), R(V5/V6)+S(V1)] ABNORMAL RHYTHM ECG UNCONFIRMED REPORT Electronically signed by : Devon Villegas MD 01/19/2022 19:23:35
[2022-01-18 11:58] VITALS: BP 110/73; PULSE 95; RESP 21; TEMP 36.7; O2SAT 99
[2022-01-18 12:30] VITALS: PULSE 112; RESP 20; O2SAT 96
[2022-01-18 13:00] VITALS: BP 122/73; PULSE 96; RESP 18; O2SAT 100
[2022-01-18 13:00] LABS: Basophils # 0.1 K/mm3 (0-0.2); Basophils % 0.8 % (0.1-2.0); Eosinophils # 0.1 K/mm3 (0.0-0.4); Eosinophils % 1.5 % (0.1-12.0); Hematocrit 46.8 % (37.0-47.0); Hemoglobin 15.3 g/dL (12.2-16.2); Lymphocytes # 1.9 K/mm3 (0.7-4.5); Lymphocytes % 27.6 % (10-50); Mean Corpuscular HGB Conc 32.6 g/dL (31.8-35.4); Mean Corpuscular Hemoglobin 32.3 pg (27.0-31.2); Mean Platelet Volume 7.3 fl (7.4-10.4); Monocytes # 0.5 K/mm3 (0.1-1.0); Monocytes % 7.3 % (1.7-9.3); Neutrophils # 4.3 K/mm3 (1.8-7.8); Neutrophils % 62.8 % (37.0-80.0); Platelet Count 351 K/mm3 (142-424); Red Blood Count 4.73 M/mm3 (4.20-5.40); Red Cell Distribution Width 12.4 % (11.5-17.5); White Blood Count 6.8 K/mm3 (4.8-10.8)
[2022-01-18 13:06] LABS: Chloride 96 mmol/L (98-107); Sodium 135 mmol/L (136-145)
[2022-01-18 13:09] LABS: Alanine Aminotransferase 24 U/L (12-78); Albumin Level 4.3 g/dl (3.5-5.0); Albumin/Globulin Ratio 1.6 (1.1-1.8); Alkaline Phosphatase 75 U/L (38-126); Aspartate Amino Transferase 35 U/L (14-36); Bilirubin,Total 0.7 mg/dl (0.2-1.3); Blood Urea Nitrogen 6 mg/dl (7-17); Carbon Dioxide 34 mmol/L (22.0-30.0); Creatinine Clearance Estimated 40 mL/min (50-200); Estimated Glomerular Filt Rate 122 ml/min (>60); GFR (African American) 148 ML/MIN (>60); Globulin 2.7 g/dL (1.3-3.2)
[2022-01-18 13:10] LABS: Calcium 8.6 mg/dl (8.4-10.2); Glucose 144 mg/dl (74-100)
[2022-01-18 13:30] VITALS: BP 116/71; PULSE 97; RESP 14; O2SAT 99
--- NOTE | 2022-01-18 14:00 | XR_ITS ---
FINAL REPORT TECHNIQUE: Chest PA & Lateral CLINICAL HISTORY: soa COMPARISON: December 17, 2021 FINDINGS: 2 views of the chest were performed. The heart size is normal. The mediastinum is within normal limits. There is no acute cardiopulmonary process. There is scarring at the lung bases. There is mild elevation of the left hemidiaphragm. There are no pleural effusions. There is no pneumothorax. The bony thorax appears intact. IMPRESSION: Mild elevation of the left hemidiaphragm. Reviewed, Interpreted and Dictated by Marvin Lopez MD Transcribed by Melanie Vora Authenticated by Marvin Lopez MD on 01/18/2022 03:58:35 PM [facility]
--- NOTE | 2022-01-18 14:00 | XR_ITS ---
FINAL REPORT CLINICAL HISTORY: f/u of impacted bowels FINDINGS: Flat and upright views of the abdomen were obtained. There is a nonspecific bowel gas pattern. There are some air-filled loops of nondilated small bowel. There is no abnormal calcification. The bony structures are intact. IMPRESSION: Nonspecific bowel gas pattern. Reviewed, Interpreted and Dictated by Marvin Lopez MD Transcribed by Melanie Vora Authenticated by Marvin Lopez MD on 01/18/2022 03:58:33 PM [facility]
--- NOTE | 2022-01-18 14:04 | HMH.EDGENADL ---
ED Disposition Clinical Impression: Dysphagia Qualifiers: Dysphagia type: unspecified Qualified Code(s): R13.10 - Dysphagia, unspecified Disposition: Home, Self-Care Condition on Discharge: Good Instructions: DI for Adverse Drug Reaction -- Allergic Additional Instructions: Follow-up with Dr. Patton, call for appointment. Referrals: Sydney Patton MD [Primary Care Provider] - - Critical Care Critical Care Time: No Attestation: On 01/18/22, the high probability of a clinically significant, sudden or life threatening deterioration of the following system(s) required my full and direct attention, intervention and personal management. The time I documented below is in addition to time spent performing reported procedures but includes the following listed in this critical care notation. Medical Decision Making - [place]iel Inquiry Pt receiving controlled substance: No Vital Signs: 01/18/22 11:58 01/18/22 12:30 01/18/22 13:00 Temperature 98.1 F Temperature Source Oral Pulse Rate 112 H 96 H Pulse Rate [Left Radial] 95 H Respiratory Rate 21 20 18 Blood Pressure 122/73 Blood Pressure [Left Arm] 110/73 Blood Pressure Mean [Left Arm] 85 Blood Pressure Source [Left Arm] Automatic Cuff Blood Pressure Position [Left Arm] Sitting 02 Sat by Pulse Oximetry 99 96 100 Oxygen Delivery Method Nasal Cannula Oxygen Flow Rate (LPM) 2 01/18/22 13:30 Temperature Temperature Source Pulse Rate 97 H Pulse Rate [Left Radial] Respiratory Rate 14 Blood Pressure 116/71 Blood Pressure [Left Arm] Blood Pressure Mean [Left Arm] Blood Pressure Source [Left Arm] Blood Pressure Position [Left Arm] 02 Sat by Pulse Oximetry 99 Oxygen Delivery Method Oxygen Flow Rate (LPM) - Lab Data Lab Results 01/18/22 12:44: WBC 6.8, RBC 4.73, Hgb 15.3, Hct 46.8, MCV 99.0, MCH 32.3 H, MCHC 32.6, RDW 12.4, Plt Count 351, MPV 7.3 L, Neut % (Auto) 62.8, Lymph % (Auto) 27.6, Haines % (Auto) 7.3, Eos % (Auto) 1.5, Baso % (Auto) 0.8, Neut # (Auto) 4.3, Lymph # (Auto) 1.9, Haines # (Auto) 0.5, Eos # (Auto) 0.1, Baso # (Auto) 0.1 01/18/22 12:44: Sodium 135 L, Potassium 4.0, Chloride 96 L, Carbon Dioxide 34 H, Anion Gap 9.0, BUN 6 L, Creatinine 0.50 L, Estimated Creat Clear 40, Estimated GFR 122, Est GFR ( Amer) 148, Glucose 144 H, Calcium 8.6, Total Bilirubin 0.7, AST 35, ALT 24, Alkaline Phosphatase 75, Total Protein 7.0, Albumin 4.3, Globulin 2.7, Albumin/Globulin Ratio 1.6 Result diagrams: 01/18/22 12:44 01/18/22 12:44 Orders (Tests/Meds): ED MEDICATIONS Generic Name Dose Route Start Last Admin Trade Name Freq PRN Reason Stop Dose Admin Sodium Chloride 8 ml 01/18/22 12:17 Sodium Chloride 0.9% 10ml Vial IV 02/17/22 12:16 NEEDED PRN dilute pepcid Discontinued Medications Generic Name Dose Route Start Last Admin Trade Name Freq PRN Reason Stop Dose Admin Diphenhydramine HCl 25 mg 01/18/22 12:16 01/18/22 12:18 Diphenhydramine 50mg/Ml Vial IV 01/18/22 12:17 25 mg ONCE ONE Administration Famotidine 20 mg 01/18/22 12:17 01/18/22 12:18 Famotidine 20mg/2ml Vial IV 01/18/22 12:18 20 mg ONCE ONE Administration Methylprednisolone Sodium Succinate 125 mg 01/18/22 12:19 01/18/22 12:19 Methylprednisolone Sod Succ 125mg Vial IV 01/18/22 12:20 125 mg ONCE ONE Administration ORDERS Category Date Time Status Chest XR 2 view (NOT portable) [XR chest 2V] Stat Exams 01/18/22 14:00 Taken XR abdomen min 2V Stat Exams 01/18/22 14:00 Taken - Radiology Data #1 Image(s): Chest, Abdomen Image Reviewed: Yes I reviewed the patient's radiology image No acute process on chest x-ray, no significant change from prior. Abdominal x-ray shows no signs of obstruction or free air. Stool burden appears improved from recent CT scan. - ECG Data Tracing #1 EKG interpreted by Chepe Kowalski MD: Rhythm: sinus tachycardia Rate: 101 [place]: normal Ectopy: Jaclyn
--- NOTE | 2022-01-18 14:07 | PC.NURSE ---
patient to radiology
--- NOTE | 2022-01-18 14:20 | PC.NURSE ---
patient back from radiology
--- NOTE | 2022-01-18 14:27 | PC.NURSE ---
MD at bedside for update on POC
[2022-01-18 15:17] VITALS: BP 129/73; PULSE 68; RESP 16; TEMP 36.6; O2SAT 97
== END 2022-01-18 15:32 | disposition home or self-care (01) ==
PROVIDERS: Emergency Provider Emergency Medicine; PCP Family Medicine
DX: R13.10 Dysphagia, unspecified (principal); T45.2X5A Adverse effect of vitamins, initial encounter; Y92.019 Unspecified place in single-family (private) house as the place of occurrence of the external cause; F41.9 Anxiety disorder, unspecified; F17.210 Nicotine dependence, cigarettes, uncomplicated
CPT/HCPCS: 36415; 71046; 74019; 80053; 85025; 93005; 96374; 96375; 99283

== ENCOUNTER 2022-02-18 13:23 | Emergency (ER) | payer MEDICARE, SELFPAY ==
[2022-02-18] VITALS (15 sets, daily range): BP systolic 111–159; BP diastolic 66–110; PULSE 87–119; RESP 18–22; TEMP 36.4–36.6; O2SAT 75–100; BMI 18.5
--- NOTE | 2022-02-18 | ECG_ITS ---
APPROVED REPORT Exam: Resting ECG HR:90 bpm ECG Measurements Heart Rate 90 AXES IA 188 P 84 QRSd 85 QRS 46 QT 341 T 91 QTc [address] DEVIATION AND MODERATE T-WAVE ABNORMALITY, CONSIDER ANTERIOR ISCHEMIA [-0.1+ mV T-WAVE IN V3/V4] ABNORMAL ECG UNCONFIRMED REPORT Electronically signed by : Devon Villegas MD 02/19/2022 19:46:17
--- NOTE | 2022-02-18 13:25 | PC.NURSE ---
PT AWAKE ALERT, ANSWER QUESTIONS FOLLOWS COMMANDS. PT STATES SHE IS UNABLE TO LIFT ARMS. STATES SHE WAS WALKING AROUND IN HOUSE THIS AM. STATES THERE HAS BEEN A CHANGE IN VOICE IT HAS BECOME VERY WEAK . PT WITH GRUNTING, SHALLOW RESP.
[2022-02-18 13:44] LABS: POC Glucose,Bedside 129 (70-110)
--- NOTE | 2022-02-18 13:45 | XR_ITS ---
PROCEDURE INFORMATION: Exam: XR Chest Exam date and time: 02/18/2022 1:52 PM Age: 71 years old Clinical indication: Shortness of breath; Additional info: SOB TECHNIQUE: Imaging protocol: XR of the chest. Views: 1 view. COMPARISON: CR XR CHEST 2V 01/18/2022 1:59 PM FINDINGS: Lungs: Mild hyperlucent changes within the upper to mid lung zones. Subtle region of opacification at the left lung base. Pleural spaces: Unremarkable. No pleural effusion. No pneumothorax. Heart/Mediastinum: Unremarkable. No cardiomegaly. Diaphragm: Persistent mild elevation of both hemidiaphragms. Bones/joints: Unremarkable. IMPRESSION: 1. Mild hyperlucent changes as described above. Mild emphysematous changes could not be excluded. 2. Patchy left lower lobe infiltrate suggested.
[2022-02-18 13:56] LABS: Chloride 94 mmol/L (98-107)
[2022-02-18 13:57] LABS: Potassium 3.8 mmoL/L (3.5-5.1); Sodium 143 mmol/L (136-145)
[2022-02-18 13:59] LABS: Alanine Aminotransferase 25 U/L (12-78); Alkaline Phosphatase 86 U/L (38-126); Aspartate Amino Transferase 33 U/L (14-36); Basophils % 0.5 % (0.1-2.0); Bilirubin,Total 0.7 mg/dl (0.2-1.3); Blood Urea Nitrogen 12 mg/dl (7-17); Creatinine Clearance Estimated 37 mL/min (50-200); Eosinophils % 0.1 % (0.1-12.0); Estimated Glomerular Filt Rate 158 ml/min (>60); GFR (African American) 191 ML/MIN (>60); Hematocrit 51.9 % (37.0-47.0); Hemoglobin 16.4 g/dL (12.2-16.2); Lymphocytes % 12.5 % (10-50); Mean Corpuscular HGB Conc 31.6 g/dL (31.8-35.4); Mean Corpuscular Hemoglobin 32.2 pg (27.0-31.2); Mean Corpuscular Volume 101.9 fl (81-99); Mean Platelet Volume 8.4 fl (7.4-10.4); Monocytes # 0.4 K/mm3 (0.1-1.0); Monocytes % 5.7 % (1.7-9.3); Neutrophils # 6.3 K/mm3 (1.8-7.8); Neutrophils % 81.3 % (37.0-80.0); Platelet Count 295 K/mm3 (142-424); Red Cell Distribution Width 13.1 % (11.5-17.5); White Blood Count 7.8 K/mm3 (4.8-10.8)
[2022-02-18 14:00] LABS: Albumin Level 4.3 g/dl (3.5-5.0); Albumin/Globulin Ratio 1.4 (1.1-1.8); Calcium 9.2 mg/dl (8.4-10.2); Globulin 3.1 g/dL (1.3-3.2); Glucose 118 mg/dl (74-100); Total Protein,Serum 7.4 g/dl (6.3-8.2)
[2022-02-18 14:07] LABS: Anion Gap 11.8 mEq/L (5-15); Carbon Dioxide 41 mmol/L (22.0-30.0)
--- NOTE | 2022-02-18 14:10 | HMH.EDGENADL ---
ED Disposition Clinical Impression: Acute respiratory failure with hypoxia and hypercapnia, H/O neurological degenerative disease Pneumonia Qualifiers: Pneumonia type: due to unspecified organism Laterality: left Lung location: lower lobe of lung Qualified Code(s): J18.9 - Pneumonia, unspecified organism Disposition: Xfer Short-Term Hosp Condition on Discharge: Serious Referrals: Sydney Patton MD [Primary Care Provider] - - Critical Care Critical Care Time: Yes Attestation: On 02/18/22, the high probability of a clinically significant, sudden or life threatening deterioration of the following system(s) required my full and direct attention, intervention and personal management. The time I documented below is in addition to time spent performing reported procedures but includes the following listed in this critical care notation. Total Critical Care Time: 60 Vital system(s) involved:: Respiratory Failure My critical care processes included: Assessment & monitoring of V/S, Initial and Re-exams, Data Review/Interpretation, Coordinating Care, Medication Orders and management, Documentation Medical Decision Making - Medical Records Medical records reviewed: Yes: I reviewed the patient's medical records. MR Comment: Reviewed prior imaging studies and emergency department visits. See CT and MRI reports from previous visits below. - Osiel Inquiry Pt receiving controlled substance: No Vital Signs: 02/18/22 13:24 02/18/22 13:34 02/18/22 14:09 Temperature 97.6 F Temperature Source Oral Pulse Rate 101 H 87 Pulse Rate [Radial] 107 H Respiratory Rate 22 18 19 Blood Pressure 143/76 H 150/91 H Blood Pressure [Right Arm] 143/76 H Blood Pressure Mean 110 Blood Pressure Mean [Right Arm] 98 Blood Pressure Position [Right Arm] Sitting 02 Sat by Pulse Oximetry 100 80 L 100 Oxygen Delivery Method Nasal Cannula Room Air Nasal Cannula Oxygen Flow Rate (LPM) 3 3 02/18/22 14:30 02/18/22 15:00 02/18/22 15:31 Temperature Temperature Source Pulse Rate 95 H 95 H 99 H Pulse Rate [Radial] Respiratory Rate 20 18 20 Blood Pressure 147/95 H 133/82 119/66 Blood Pressure [Right Arm] Blood Pressure Mean 104 97 102 Blood Pressure Mean [Right Arm] Blood Pressure Position [Right Arm] 02 Sat by Pulse Oximetry 97 97 100 Oxygen Delivery Method Oxygen Flow Rate (LPM) 02/18/22 16:00 02/18/22 16:20 Temperature Temperature Source Pulse Rate 89 90 Pulse Rate [Radial] Respiratory Rate 20 20 Blood Pressure 111/89 131/92 H Blood Pressure [Right Arm] Blood Pressure Mean 94 103 Blood Pressure Mean [Right Arm] Blood Pressure Position [Right Arm] 02 Sat by Pulse Oximetry 100 100 Oxygen Delivery Method Oxygen Flow Rate (LPM) - Lab Data Lab Results 02/18/22 13:30: POC Glucose 129 H 02/18/22 13:30: WBC 7.8, RBC 5.10, Hgb 16.4 H, Hct 51.9 H, MCV 101.9 H, MCH 32.2 H, MCHC 31.6 L, RDW 13.1, Plt Count 295, MPV 8.4, Neut % (Auto) 81.3 H, Lymph % (Auto) 12.5, [place] % (Auto) 5.7, Eos % (Auto) 0.1, Baso % (Auto) 0.5, Neut # (Auto) 6.3, Lymph # (Auto) 1.0, [place] # (Auto) 0.4, Eos # (Auto) 0.0, Baso # (Auto) 0.0 02/18/22 13:30: Sodium 143, Potassium 3.8, Chloride 94 L, Carbon Dioxide 41 H*, Anion Gap 11.8, BUN 12, Creatinine 0.40 L, Estimated Creat Clear 37, Estimated GFR 158, Est GFR ( Amer) 191, Glucose 118 H, Calcium 9.2, Total Bilirubin 0.7, AST 33, ALT 25, Alkaline Phosphatase 86, Troponin I < 0.01, Total Protein 7.4, Albumin 4.3, Globulin 3.1, Albumin/Globulin Ratio 1.4 02/18/22 13:30: Total Creatine Kinase 24 L 02/18/22 13:30: C-Reactive Protein 3.6, Lipase 36 02/18/22 13:30: ESR 6 02/18/22 13:30: Procalcitonin 0.050 02/18/22 15:00: Lactate 0.5 L 02/18/22 15:05: SARS-CoV-2 (PCR) Not detected, Influenza A Untype (PCR) Not detected, Influenza Type B (PCR) Not detected 02/18/22 17:05: Urine Color Yellow, Urine Appearance Clear, Urine pH 6.0, Ur Specific [place] >= 1.030, Urine Protein 2+, Urin
[2022-02-18 14:12] LABS: Troponin I < 0.01 ng/ml (0.00-0.034)
--- NOTE | 2022-02-18 14:12 | PC.NURSE ---
Tech did EKG 1405. Pt @ bedside
--- NOTE | 2022-02-18 14:52 | PC.NURSE ---
Respiratory in room
[2022-02-18 15:04] LABS: Lipase 36 U/L (23-300)
[2022-02-18 15:06] LABS: Creatine Kinase 24 U/L (30-135)
[2022-02-18 15:10] LABS: C-Reactive Protein 3.6 mg/L (0-4)
[2022-02-18 15:12] LABS: Lactic Acid 0.5 mmol/L (0.7-2.1)
--- NOTE | 2022-02-18 15:15 | PC.NURSE ---
PT DIFFICULT TO AROUSE. AT BEDSIDE. PT DID RESPOND TO REPEATED PAINFUL STIMULI.
--- NOTE | 2022-02-18 15:23 | PC.NURSE ---
pt in room bipap, @bedside
--- NOTE | 2022-02-18 15:24 | PC.NURSE ---
called [facility] for request to transfer [phone]
--- NOTE | 2022-02-18 16:00 | PC.NURSE ---
DR JARVIS AT BEDSIDE UNABLE TO AROUSE PT TO PAINFUL STIMULI. RESP CALLED TO HELP WITH INTUBATION
[2022-02-18 16:16] LABS: Coronavirus 19, PCR Not Detected (NotDetected); Influenza A, PCR Not Detected (NotDetected); Influenza B, PCR Not Detected (NotDetected)
--- NOTE | 2022-02-18 16:21 | XR_ITS ---
PROCEDURE INFORMATION: Exam: XR Chest Exam date and time: 02/18/2022 4:22 PM Age: 71 years old Clinical indication: Device placement; Ett placement (vent status); Additional info: Tube placement TECHNIQUE: Imaging protocol: XR of the chest. Views: 1 view. COMPARISON: CR XR CHEST PORTABLE 02/18/2022 1:52 PM FINDINGS: Tubes, catheters and devices: An endotracheal tube has been placed. The tip is 3 cm above the nico. Lungs: Patchy left lower lobe infiltrate has slightly increased. Pleural spaces: Unremarkable. No pleural effusion. No pneumothorax. Heart/Mediastinum: Unremarkable. No cardiomegaly. Bones/joints: Unremarkable. IMPRESSION: 1. Tip of the endotracheal tube 3 cm above the nico. 2. Increasing region of left lower lobe infiltrate.
[2022-02-18 16:25] LABS: Erythrocyte Sedimentation Rate 6 mm/hr (0-30)
--- NOTE | 2022-02-18 16:25 | CT_ITS ---
PROCEDURE INFORMATION: Exam: CT Head Without Contrast Exam date and time: 02/18/2022 5:22 PM Age: 71 years old Clinical indication: Altered mental status/memory loss; Additional info: AMS, unresponsive TECHNIQUE: Imaging protocol: Computed tomography of the head without contrast. Radiation optimization: All CT scans at this facility use at least one of these dose optimization techniques: automated exposure control; mA and/or kV adjustment per patient size (includes targeted exams where dose is matched to clinical indication); or iterative reconstruction. COMPARISON: MR HEAD/BRAIN WO CON 03/21/2021 1:52 PM FINDINGS: Brain: Prominent volume loss is again demonstrated involving the frontal lobes bilaterally. These findings are unchanged. There is a subtle rounded focus of diminished density in the region of the right lentiform nuclei. Findings are new compared with the previous study and are most consistent with a region of chronic lacunar infarction. There is a persistent smaller focus of diminished density equivalent to that of cerebral spinal fluid at the level of the 3rd ventricle. Findings suggestive of a focus of Virchow-Parag (CSF containing perivascular) space. The previously described focus of T2 hyperintensity at the level of the body of the left caudate nuclei is not definitively identified on the current study. Cerebral ventricles: Mild prominence of the temporal horns of the lateral ventricles is again demonstrated. Findings appear stable accounting for differences in technique and patient positioning. Paranasal sinuses: Visualized sinuses are unremarkable. No fluid levels. Mastoid air cells: Lack of aeration of the left mastoid air cells. Findings consistent with mastoiditis. Similar findings were present on the previous study. Bones/joints: Unremarkable. No acute fracture. Soft tissues: Unremarkable. Other findings: A partially empty sella is again demonstrated. IMPRESSION: 1. Persistent mild diffuse intracerebral volume loss most pronounced involving the frontal lobes. 2. Demonstration of chronic lacunar infarction in the region of the right lentiform nuclei. Findings new since 03/21/2021. 3. Persistent partially empty sella. 4. Left mastoiditis. Findings unchanged.
--- NOTE | 2022-02-18 16:46 | PC.NURSE ---
called [facility] returning dr camcaho ([place]) call
--- NOTE | 2022-02-18 16:57 | PC.NURSE ---
ER on phone w DR jones, informing him on intubation and request of transfer
--- NOTE | 2022-02-18 17:00 | PC.NURSE ---
PROPHOL DRIP AT 30MCG/HR
[2022-02-18 17:08] LABS: Microscopic, Urine URINE MICROSCOPIC (MICROSCOPIC)
[2022-02-18 17:20] LABS: Appearance,Urine CLEAR (Clear); Bilirubin,Urine Negative (Negative); Blood, Urine Negative (Negative); Color,Urine YELLOW (Yellow); Glucose,Urine (UA) Negative (Negative); Ketones,Urine 1+ (Negative); Leukocyte Esterase,Urine Negative (Negative); Nitrate,Urine Negative (Negative); Protein,Urine 2+ (Negative); Specific Gravity, Urine >= 1.030 (1.005-1.030); Urobilinogen,Urine 0.2 EU/dl (0.2)
--- NOTE | 2022-02-18 17:35 | PC.NURSE ---
PROPOPHOL DRIP AT 40MCG/HR
[2022-02-18 17:40] LABS: Troponin I < 0.01 ng/ml (0.00-0.034)
--- NOTE | 2022-02-18 17:50 | PC.NURSE ---
RESP CALLED FOR ABG
--- NOTE | 2022-02-18 18:00 | PC.NURSE ---
PROPOPHOL DRIP AT 50MCG/HR
[2022-02-18 18:07] LABS: ABG Base Excess 5.6 mmol/L (-2.4-2.3); ABG HCO3 27.9 mmhg (22.0-26.0); ABG Oxygen Saturation 99 % (90-100); ABG PCO2 32.1 mmhg (35.0-45.0); ABG PO2 119.2 mmhg (80-100); ABG TCO2 28.9 mmhg (23-27)
[2022-02-18 18:08] LABS: Allen's Test y; Oxygen 35 %; PEEP 5; Tidal Volume 400; Vent Rate 20
[2022-02-18 18:09] LABS: ABG PH 7.56 mmol/L (7.35-7.45)
--- NOTE | 2022-02-18 18:45 | PC.NURSE ---
FAMILY AT BEDSIDE UPDATED ON PLAN OF CARE
--- NOTE | 2022-02-18 19:13 | PC.NURSE ---
REPORT CALLED TO [facility] JANSEN
--- NOTE | 2022-02-18 19:41 | PC.NURSE ---
VERSED 2 MG/HR INITIATED PER MD VERBAL ORDER.
[2022-02-19 06:47] LABS: ABG PCO2 89.1 mmhg (35.0-45.0); ABG PH 7.26 mmol/L (7.35-7.45)
[2022-02-19 06:48] LABS: ABG Base Excess 12.4 mmol/L (-2.4-2.3); ABG HCO3 39.4 mmhg (22.0-26.0); ABG Oxygen Saturation 100 % (90-100); ABG PO2 247.1 mmhg (80-100); ABG TCO2 42.2 mmhg (23-27); Allen's Test acceptable; Oxygen 4 %; Source rr
== END 2022-02-18 20:10 | disposition short-term general hospital (02) ==
PROVIDERS: Emergency Provider Emergency Medicine; PCP Family Medicine
DX: J80 Acute respiratory distress syndrome (principal); F17.210 Nicotine dependence, cigarettes, uncomplicated; J18.9 Pneumonia, unspecified organism; K80.00 Calculus of gallbladder with acute cholecystitis without obstruction
CPT/HCPCS: 31500; 94002; 51702; 70450; 71045; 80053; 81001; 82550; 82803; 82962; 83605; 83690; 84145; 84484; 85025; 85651; 86140; 87040; 93005; 96365; 96367; 96375; 96376; 99291; C9803; J1956; J2704; U0003; U0005